=== PATIENT | male | born 1995 | race Caucasian/White ===

== ENCOUNTER 2017-12-28 01:11 | Emergency (ER) | payer OTHER ==
[2017-12-28 02:14] LABS: #Eosinphils 0.1 thou/uL (0.0-0.7); #Lymphocytes 1.8 thou/uL (1.20-3.40); #Monocytes 0.5 thou/uL (0.11-0.59); #Neutrophils 5.6 thou/uL (1.40-6.50); %Basophils 0.6 % (0.0-1.0); %Eosinophils 1.3 % (0.0-10.0); %Lymphocytes 22.5 % (28.0-48.0); %Monocytes 6.3 % (0.0-4.0); %Neutrophils 69.4 % (31.0-61.0); Mean Corpuscular HGB CONC 34.8 g/dL (32.0-36.0); Mean Corpuscular Hemoglobin 29.4 pg (25.0-35.0); Mean Corpuscular Volume 84.5 fL (78.0-98.0); Mean Platelet Volume 7.8 fL (7.4-10.4); Platelet Count 207 thou/uL (130-400); RBC Distribution Width 10.2 % (11.5-14.5); White Blood Cell (WBC) Count 8.1 thou/uL (4.8-10.8)
[2017-12-28 02:18] LABS: INR-International Normal Ratio 1.2; PTT 24.3 SEC (22.9-36.1); Prothrombin Time 14.8 SEC (12.0-14.7)
[2017-12-28 02:25] LABS: ALT (SGPT) 9 U/L (8-55); AST (SGOT) 15 U/L (5-34); Albumin 4.7 g/dL (3.5-5.0); Alkaline Phosphatase 55 U/L (Less than 750); Anion Gap 12 mmol/L (10-20); BUN (Urea Nitrogen) 14 mg/dL (8.9-20.6); Bilirubin, Total 0.5 mg/dL (0.2-1.2); CK (CPK) 101 U/L (30-200); Calc. Creatinine Clearance 0 mL/min (70-130); Calcium 9.6 mg/dL (7.8-10.44); Carbon Dioxide 25 mmol/L (22-29); Chloride 108 mmol/L (98-107); Estimated GFR-MDRD Greater than 90; Globulin 2.1 g/dL (2.4-3.5); Glucose 92 mg/dL (70-105); Potassium 4.1 mmol/L (3.5-5.1); Protein, Total 6.8 g/dL (6.0-8.3); Sodium 141 mmol/L (136-145)
[2017-12-28 03:06] LABS: Bilirubin Negative (Negative); Blood, Urine Negative (Negative); Clarity Slightly Cloudy (Clear); Glucose, Urine (Dipstick) Negative (Negative); Leukocyte Negative (Negative); Nitrite Negative (Negative); Protein, Urine (Dipstick) Negative (Neg-Trace); Urobilinogen 0.2 mg/dL (0.2-1.0)
== END 2017-12-28 02:19 | disposition other institution (70) ==
LOC: SCSER 01:11
DX: T63.091A Toxic effect of venom of other snake, accidental (unintentional), initial encounter (principal); F17.290 Nicotine dependence, other tobacco product, uncomplicated
CPT/HCPCS: 80053; 81003; 82550; 85025; 85384; 85610; 85730

== ENCOUNTER 2017-12-28 04:34 | Observation (INO) | payer OTHER ==
[2017-12-28] MEDS ORDERED: HOLD ALL ANTI-COAGULANTS/ANTI-PLATELETS/NSAIDS PO SCH (05:00)
[2017-12-28] MEDS ORDERED: Crotalidae Polyvlnt Antivenin 4 GM in Sodium Chloride 0.9% 250 ML 250 ML IVPB SCH (05:00)
[2017-12-28] MEDS ORDERED: Ondansetron HCl/PF 4 MG/2 ML Vial IVP PRN (05:26)
[2017-12-28] MEDS ORDERED: Acetaminophen 325 MG TAB PO PRN (05:26)
[2017-12-28 06:38] VITALS: BMI 22.9
[2017-12-28 08:13] LABS: INR-International Normal Ratio 1.2; PTT 27.2 SEC (22.9-36.1); Prothrombin Time 15.1 SEC (12.0-14.7)
[2017-12-28 10:34] LABS: Platelet Count 175 thou/uL (130-400)
[2017-12-28 10:43] LABS: INR-International Normal Ratio 1.2; PTT 27.4 SEC (22.9-36.1)
--- NOTE | 2017-12-28 10:51 | PDOC.PN ---
- Subjective Encounter Start Date: 12/28/17 Encounter Start Time: 08:40 Subjective: no pain or worsoning swelling in left foot/ankle - Objective Resuscitation Status: Resuscitation Status FULL:Full Resuscitation MAR Reviewed: Yes Vital Signs & Weight: Vital Signs (12 hours) Temp Pulse Resp BP BP Pulse Ox 12/28/17 07:58 98 F 70 18 109/73 99 12/28/17 06:12 98.7 F 68 18 121/80 100 Weight Weight 159 lb 12.8 oz I&O: 12/27/17 12/28/17 12/29/17 06:59 06:59 06:59 Intake Total 610 Balance 610 Result Diagrams: 12/28/17 10:23 Phys Exam - Physical Examination HEENT: PERRLA, moist MMs Neck: no JVD, supple Respiratory: no wheezing, no rales Cardiovascular: RRR, no significant murmur Gastrointestinal: soft, non-tender, positive bowel sounds Musculoskeletal: pulses present left foot edema, erythema+, rom is normal Neurological: non-focal, moves all 4 limbs Psychiatric: normal affect, A&O x 3 Dx/Plan (1) Snake bite Code(s): W59.11XA - Status: Acute Qualifiers: Encounter type: subsequent encounter Qualified Code(s): W59.11XD - Bitten by nonvenomous snake, subsequent encounter (2) Cellulitis of left foot Code(s): L03.116 - CELLULITIS OF LEFT LOWER LIMB Status: Acute - Plan is recieving 1 dose crofab now -: hemostable -: no overt bleeding -: may dc this afternoon if swelling is receding and he is ambulating * . Review of Systems - Medications/Allergies Allergies/Adverse Reactions: Allergies Allergy/AdvReac Type Severity Reaction Status Date / Time No Known Allergies Allergy Verified 12/28/17 06:29 Medications: Current Medications Acetaminophen (Tylenol) 650 mg PO Q4H PRN PRN Reason: Headache/Fever or Pain Morphine Sulfate (Morphine) 2 mg SLOW IVP Q4H PRN PRN Reason: Severe Pain (7-10) Hold All Anti- Coagulants/Anti- Platelets/Nsaids 0 each PO ONE ODALIS Stop: 12/30/17 05:01 Ondansetron HCl (Zofran) 4 mg IVP Q6H PRN PRN Reason: Nausea/Vomiting
--- NOTE | 2017-12-28 11:08 | HP ---
PRIMARY CARE PHYSICIAN: Unknown. CODE STATUS: FULL CODE. TIME OF EVALUATION: 5:30 a.m. CHIEF COMPLAINT: Got bitten by a snake. HISTORY OF PRESENT ILLNESS: This is a 22 years old male patient with past medical history of no medi kenney problems, came to the hospital after having severe sharp pain in the left foot, he suspects that he was bit by a snake, but he could not see the snake. The patient reported associated swelling in t he area and has some nausea and vomiting, no other symptoms at present. The symptoms are improving h ere after initial treatment. Initially, coagulation was borderline positive and he was given CroFab. For that reason, the patient has been evaluated now since the symptoms are improving . REVIEW OF SYSTEMS: Constitutional: The patient had no fever. He reported some chills and generaliz ed weakness. Respiratory: No cough or sputum production or shortness of breath. Cardiovascular: N o chest pain, palpitation. Gastrointestinal: The patient had nausea, vomiting, no diarrhea, no abdo epifanio pain. CLINICAL DENTAL TECHNICIAN: No dizziness, headache or feeling lightheaded. Genitourinary: No burning with ur ination. Extremities: Left foot with significant swelling, change in color. There is bite rocky on the lateral area of the foot. All other systems were reviewed and negative except for the findings m entioned above. PAST MEDICAL HISTORY: Negative. PAST SURGICAL HISTORY: Tonsillectomy. PSYCHIATRIC HISTORY: No psych history. SOCIAL HISTORY: The patient smokes/vapes. No drugs, no alcohol. FAMILY HISTORY: Mother has a history of . KNOWN ALLERGIES: No known drug allergies. REPORTED MEDICATIONS: None. PHYSICAL EXAMINATION: VITAL SIGNS: On presentation, blood pressure 114/71, heart rate 72, respiratory rate was 18, tempera ture 98, O2 saturation 98 on room air. GENERAL APPEARANCE: The patient is alert, oriented, not in any acute distress. HEENT: Eyes: Normal conjunctiva, moist mucosa, anicteric. NECK: No JVD. RESPIRATORY: Bilateral air entry. No rales, no wheezes. Symmetric expansion. CARDIOVASCULAR: Normal rate, regular rhythm. No murmurs, no gallop, no edema except for the left fo ot where the bite is. ABDOMEN: Soft. Normal bowel sounds. MUSCULOSKELETAL: Baseline range of motion and strength, no tenderness except for left foot has swell ing, change in color and bite rocky on the lateral aspect of the foot. SKIN: Warm and intact. No pallor, no rash or redness except for the findings mentioned in musculosk eletal. Peripheral pulses are present. Capillary refill seems to be intact. NEUROLOGIC: Baseline sensory. No evidence of any focal weakness. Baseline speech. Cranial nerves seem to be intact. PSYCHIATRIC: The patient is in good mood, no anxiety, oriented, optimal judgement. LABORATORY DATA: Reviewed. The patient has white count 8.1, hemoglobin 15, MCV 84. Coagulation: T he patient has PT 14.8, INR 1.2, PTT 24.3, fibrinogen 217, this is low. Chemistry: Sodium 141, pota ssium 4.1, chloride 108, carbon dioxide 25, anion gap 12, BUN 14, creatinine 0.9, GFR greater than 90 . Glucose 92, calcium 9.6, total bilirubin 0.5, AST 15, ALT 9, alkaline phosphatase 55. CK 101. Se rum total protein 6.8, albumin 4.7, globulin 2.1, albumin globulin ratio is 2.2. Urine was reviewed and was negative. ASSESSMENT AND PLAN: The patient will be placed in the hospital with the following medical problems. 1. Insect bite, possible snake. The patient received CroFab at the beginning due to mild elevation in the coagulation studies. The patient has been resting comfortably, no more symptoms. The swellin g is not progressing up the knee. We will continue symptomatic treatment. 2. The patient will need opioid medication for optimal control. This places him at high risk of com plication from treatment. 3. Deep venous thrombosis prophylaxis. Symptoms are controlled at this point. We will continue symptomatic treatment.
[2017-12-28 16:10] VITALS: BP 108/68; TEMP 98.7
--- NOTE | 2017-12-29 01:40 | DIS ---
DATE OF ADMISSION: 12/28/2017 DATE OF DISCHARGE: 12/28/2017 DISPOSITION: Home. PRIMARY DISCHARGE DIAGNOSES: Snake bite with left foot and ankle cellulitis, resolving. PROCEDURES DONE DURING HOSPITALIZATION: Platelet count 175, fibrinogen levels were 236. PT level is 15, INR 1.2. DISCHARGE MEDICATIONS: None. ALLERGIES: No known drug allergies. DISCHARGE PLAN: Patient to follow up with primary care physician in 1 week. BRIEF COURSE DURING HOSPITALIZATION: Patient initially came to ER after he was bitten on the left foot by something he coudn't recognize. This was suspected to be snake bite. His left foot and ankle started to swell up. Patient was essentially admitted for snake bite. He received 1 amp of CroFab. His edema and erythema is receding at the time of discharge. He is ambulating well. Patient has some generalized weakness, which is resolving as well. He is hemodynamically stable and is not bleeding anywhere. He needs to come to the nearest emergency room if he were to develop bleeding or worsening of left foot ankle edema or pain. He is otherwise hemodynamically stable and will be shortly discharged home. Please see a face to face documentation on [facility] for the day of discharge. [facility]
== END 2017-12-28 17:22 | disposition home or self-care (01) ==
LOC: ERS 04:34 → 2SW 05:00
PROVIDERS: ADMIT Hospitalist; ATTEND Hospitalist
DX: S91.352A Open bite, left foot, initial encounter (principal); L03.116 Cellulitis of left lower limb; W59.11XA Bitten by nonvenomous snake, initial encounter
CPT/HCPCS: 36415; 80053; 81003; 82550; 85025; 85384; 85610; 85730; 96360; 96365; 99406; G0378; J0840; J7050